=== PATIENT | male | born 1990 | race Caucasian/White ===

== ENCOUNTER 2025-03-02 16:27 | Emergency (ER) | payer BC ==
[~2025-03-02] VITALS: Ht 182.9 cm; Wt 165.9 kg
[2025-03-02] MEDS ORDERED: LOSA50TA28 PO (16:45)
[2025-03-02] MEDS: ONDANSETRON 4MG 2ML VIAL IV ONE (17:32)
[2025-03-02] MEDS: NS (Normal Saline) 0.9% 1,000 ML IV ONE (17:32)
[2025-03-02] MEDS: KETOROLAC 30 MG/ML 1 ML VIAL IV ONE (17:38)
[2025-03-02 17:54] LABS: BASO # 0.1 10^3/uL (0.0-0.2); BASO % 0.5 % (0.0-1.0); EOS # 0.1 10^3/uL (0.0-0.5); EOS % 0.8 % (0.0-3.0); LYMPH # 1.2 10^3/uL (1.5-5.0); LYMPH % 10.8 % (24.0-44.0); MONO # 0.5 10^3/uL (0.0-0.8); MONO % 4.8 % (2.0-8.0); NEUTROPHILS # 9.2 10^3/uL (1.5-8.5); NEUTROPHILS % 82.7 % (36.0-66.0); PLATELET COUNT, AUTOMATED 364 10^3/uL (150-450)
[2025-03-02 18:19] LABS: KETONE, URINE AUTO RFX 1+ mg/dL (NEGATIVE); LEUKOCYTE ESTERASE UR AUTO RFX NEGATIVE (NEGATIVE); MUCUS, URINE RFX LARGE (NEGATIVE); NITRITE, URINE AUTO RFX NEGATIVE (NEGATIVE); RBC, URINE AUTO RFX 69 /HPF (0-3); SQUAM EPITHELIAL CELL UR AURFX 0 /HPF (0-6); WBC, URINE AUTO RFX 3 /HPF (0-3)
[2025-03-02 18:25] LABS: ALT/SGPT 45.0 U/L (7.0-40); AST/SGOT 28.0 U/L (<34)
[2025-03-02] MEDS: MORPHINE 4 MG/ML 1 ML VIAL IV ONE (19:09)
[2025-03-02] MEDS ORDERED: TAMS-18 PO (20:42)
[2025-03-02] MEDS ORDERED: OXYC1TAB23 PO (20:42)
[2025-03-02] MEDS: TAMSULOSIN 0.4 MG CAP PO ONE (21:04)
[2025-03-02] MEDS: OXYCODONE/APAP 5MG/325MG(HOME DOSE PACK) PO ONE (21:05)
[2025-03-02 21:11] VITALS: BP 131/69; TEMP 98.4; O2SAT 98
== END 2025-03-02 21:28 | disposition home or self-care (01) ==
LOC: M ED 16:27
DX: N20.1 Calculus of ureter (principal); I10 Essential (primary) hypertension
CPT/HCPCS: 74176; 80047; 80076; 81001; 83690; 85025; 96374; 96375; 99284; J1885; J2405